=== PATIENT | male | born 2000 | race African-American/Black ===

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

== ENCOUNTER 2021-02-09 03:57 | Observation (INO) | payer MEDICARE, MEDICAID ==
[~2021-02-09] VITALS: Ht 193 cm; Wt 104.8 kg
[2021-02-09] MEDS ORDERED: LACTATED RINGERS 1,000 ML IV ONE (04:15)
[2021-02-09 04:25] LABS: BASOPHILS # (AUTO) 0.1 10^3/uL (0.0-0.1); BASOPHILS % (AUTO) 1 % (0-10); EOSINOPHILS # (AUTO) 0.2 10^3/uL (0.0-0.3); EOSINOPHILS % (AUTO) 1 % (0-10); HEMATOCRIT 50 % (40-54); HEMOGLOBIN 17.2 g/dL (13.3-17.7); LYMPHOCYTES % (AUTO) 16 % (12-44); MEAN CORPUSCULAR HEMOGLOBIN 31 pg (25-34); MEAN CORPUSCULAR HGB CONC 35 g/dL (32-36); MEAN CORPUSCULAR VOLUME 88 fL (80-99); MEAN PLATELET VOLUME 10.1 fL (9.0-12.2); MONOCYTES # (AUTO) 0.8 10^3/uL (0.0-1.0); MONOCYTES % (AUTO) 6 % (0-12); NEUTROPHILS # (AUTO) 9.8 10^3/uL (1.8-7.8); NEUTROPHILS % (AUTO) 76 % (42-75); PLATELET COUNT 333 10^3/uL (130-400); WHITE BLOOD COUNT 12.9 10^3/uL (4.3-11.0)
[2021-02-09 04:26] LABS: CHLORIDE 101 MMOL/L (98-107); POTASSIUM 3.8 MMOL/L (3.6-5.0); SODIUM 138 MMOL/L (135-145)
[2021-02-09 04:27] LABS: ALBUMIN 4.9 GM/DL (3.2-4.5)
[2021-02-09 04:28] LABS: CALCIUM 10.4 MG/DL (8.5-10.1)
[2021-02-09 04:29] LABS: GLUCOSE 83 MG/DL (70-105); TOTAL PROTEIN 8.5 GM/DL (6.4-8.2)
[2021-02-09 04:30] LABS: CARBON DIOXIDE 17 MMOL/L (21-32)
[2021-02-09 04:31] LABS: BILIRUBIN,TOTAL 0.7 MG/DL (0.1-1.0)
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
[2021-02-09 04:33] LABS: ALKALINE PHOSPHATASE 89 U/L (40-136); CREATININE SERUM 1.85 MG/DL (0.60-1.30); GFR ESTIMATED 55
[2021-02-09 04:34] LABS: BUN/CREATININE RATIO 9
[2021-02-09 04:36] LABS: ACETAMINOPHEN < 10 UG/ML (10-30); ALANINE AMINOTRANSFERASE 45 U/L (0-55); SALICYLATE < 5.0 MG/DL (5.0-20.0)
[2021-02-09] MEDS ORDERED: NS IV 1000 ML 1,000 ML IV SCH ×2 (04:45→13:00)
[2021-02-09] MEDS ORDERED: LORazepam INJ 2 MG/ML (ATIVAN) VIAL ONE (05:43)
[2021-02-09] MEDS ORDERED: LORazepam INJ 2 MG/ML (ATIVAN) VIAL IVP ONE (05:45)
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
[2021-02-09 08:42] LABS: BILIRUBIN,URINE NEGATIVE (NEGATIVE); CLARITY,URINE CLEAR; COLOR,URINE YELLOW; GLUCOSE, URINE (UA) NEGATIVE (NEGATIVE); KETONES,URINE 1+ (NEGATIVE); LEUKOCYTE ESTERASE ,URINE TRACE (NEGATIVE); NITRITE,URINE NEGATIVE (NEGATIVE); PROTEIN,URINE TRACE (NEGATIVE)
[2021-02-09] MEDS ORDERED: ONDA4TAB11 PO (08:46)
[2021-02-09 08:52] LABS: BACTERIA,URINE NEGATIVE /HPF; WBC,URINE RARE /HPF
[2021-02-09 10:34] VITALS: BP 144/99
[2021-02-09] MEDS ORDERED: KETOROLAC 30 MG/ML VIAL IJ PRN (11:00)
[2021-02-09] MEDS ORDERED: ACETAMINOPHEN 325 MG TABLET PO PRN (11:00)
[2021-02-09] MEDS ORDERED: KETOROLAC 30 MG/ML VIAL IVP PRN (11:00)
[2021-02-09] MEDS ORDERED: ONDANSETRON 4 MG/2 ML (SDV) Z0FRAN IVP PRN (11:00)
[2021-02-09] MEDS ORDERED: CATHETER FLUSH 10 ML SYR IV PRN (11:00)
[2021-02-09] MEDS ORDERED: ONDANSETRON 4 MG (ZOFRAN) ORAL DISSOLVE TAB PO PRN (11:00)
[2021-02-09] MEDS ORDERED: HYDROcodone/APAP 5 MG/325 MG (LORTAB) TAB PO PRN (11:00)
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
[2021-02-09] MEDS ORDERED: NS IV 1000 ML 1,000 ML ONE (11:29)
[2021-02-09 11:37] VITALS: BP 140/87
[2021-02-09 12:25] LABS: AMPHETAMINE SCREEN, URINE POSITIVE (NEGATIVE); BARBITURATE SCREEN URINE NEGATIVE (NEGATIVE); BENZODIAZEPINES SCREEN URINE NEGATIVE (NEGATIVE); CANNABINOID SCREEN, URINE POSITIVE (NEGATIVE); COCAINE SCREEN URINE NEGATIVE (NEGATIVE); METHADONE STAT NEGATIVE (NEGATIVE); METHAMPHETAMINE SCREEN URINE S POSITIVE (NEGATIVE); OPIATE SCREEN URINE NEGATIVE (NEGATIVE); OXYCODONE STAT NEGATIVE (NEGATIVE); PROPOXYPHENE STAT NEGATIVE (NEGATIVE); TRICYCLIC ANTIDEPRESSANTS SCRE NEGATIVE (NEGATIVE)
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
[2021-02-09] MEDS ORDERED: LORazepam 1 MG (ATIVAN) TAB PO PRN (13:00)
[2021-02-09] MEDS ORDERED: D5 1/2 NS 1000 ML IV SOLUTION 1,000 ML IV PRN (13:00)
[2021-02-09] MEDS ORDERED: ANTACID SUSP 30 ML UDC (MYLANTA) PO PRN (13:00)
[2021-02-09] MEDS ORDERED: ONDANSETRON 4 MG/2 ML (SDV) Z0FRAN IV PRN (13:00)
[2021-02-09] MEDS ORDERED: ONDANSETRON 4 MG (ZOFRAN) ORAL DISSOLVE TAB SL PRN (13:00)
[2021-02-09] MEDS ORDERED: 1/2 NS IV SOLUTION 1,000 ML IV PRN (13:00)
[2021-02-09] MEDS ORDERED: NS 100 ML (IVPB) BAG IV ONE (13:00)
[2021-02-09] MEDS ORDERED: LORazepam INJ 2 MG/ML (ATIVAN) VIAL IM/IV PRN (13:00)
[2021-02-09] MEDS ORDERED: SENNA W/DOCUSATE (SENOKOT S) TABLET PO PRN (13:00)
[2021-02-09] MEDS ORDERED: LORazepam INJ 2 MG/ML (ATIVAN) VIAL IV PRN (13:00)
[2021-02-09] MEDS ORDERED: CATHETER FLUSH 10 ML SYR IV SCH (14:00)
[2021-02-09] MEDS ORDERED: MAGNESIUM OXIDE (MAG-OX)400 MG TAB PO SCH (21:00)
[2021-02-10] MEDS ORDERED: THIAMINE 100 MG (VITAMIN B-1) TAB PO SCH (07:00)
[2021-02-10] MEDS ORDERED: MULTIVIT W/MINERALS TAB (THERAGRAN M) PO SCH (07:00)
[2021-02-10] MEDS ORDERED: FOLIC ACID 1 MG TAB PO SCH (09:00)
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
== END 2021-02-09 17:10 | disposition left against medical advice (07) ==
LOC: EDUNIT# 03:57 → ER 03:59 → 4TH 09:00 → UNDOADMOB 09:00 → 4TH 10:05 → UNDODISOB 16:50
PROVIDERS: ADMIT Family Medicine; ATTEND Family Medicine
DX: S06.0X1A Concussion with loss of consciousness of 30 minutes or less, initial encounter (principal); S19.9XXA Unspecified injury of neck, initial encounter; Y08.89XA Assault by other specified means, initial encounter; F41.9 Anxiety disorder, unspecified; F31.9 Bipolar disorder, unspecified; F60.3 Borderline personality disorder; Z79.899 Other long term (current) drug therapy
CPT/HCPCS: 70450; 70551; 72125; 73080; 73562; 80053; 80306; 81000; 82550; 85025; 99284; G0378; G0480 ×3; 36415; 80320; 80329; 96374